=== PATIENT | female | born 1965 | race Caucasian/White ===

== ENCOUNTER 2018-06-22 12:02 | Emergency (ER) | payer BC, OTHER ==
--- NOTE | 2018-06-22 14:13 | RAD ---
INDICATION: Right knee pain. TECHNIQUE: 4 views of the right knee were obtained. FINDINGS: The bones are in normal alignment. No joint effusion or fracture is seen. Joint spaces appear maintained. IMPRESSION: NO EVIDENCE FOR FRACTURE.
--- NOTE | 2018-06-22 14:33 | UC ---
Knee Pain HPI - HPI Summary HPI Summary: patient at work got up from chair , felt pop in the right knee , since that time has had swelling , and pain . since that time used ice - History of Current Complaint Chief Complaint: UCLowerExtremity Stated Complaint: WC - RIGHT KNEE Time Seen by Provider: 06/22/18 13:41 Hx Obtained From: Patient ?: No Onset/Duration: Sudden Onset Severity Initially: Moderate Pain Intensity: 6 Character: Sharp Aggravating Factor(s): Movement Alleviating Factor(s): Rest Associated Signs And Symptoms: Positive: Negative Able to Bear Weight: Yes - Allergies/Home Medications Allergies/Adverse Reactions: Allergies Allergy/AdvReac Type Severity Reaction Status Date / Time silver sulfadiazine Allergy Blisters, Verified 06/22/18 12:35 [From Silvadene] Swollen Lips tramadol [From Ultram] Allergy Blisters, Verified 06/22/18 12:35 Swollen Lips Home Medications: Home Medications Acetaminophen [Acetaminophen Extra Strength] 1,000 mg PO Q6H PRN 06/22/18 [ History Confirmed 06/22/18] DULoxetine DR CAP* [Cymbalta CAP*] 30 mg PO DAILY 06/22/18 [History Confirmed ] PMH/Surg Hx/FS Hx/Imm Hx - Additional Past Medical History Additional PMH: gastric bypass surgery, hx. of fibromyalgia Previously Healthy: No - Surgical History Surgical History: Yes Surgery Procedure, Year, and Place: Gastric Bypass, 2014, [facility]; Lap Band, 2012, [facility]; C6C7 [facility]; Cholecystectomy, [place]; Bilateral Tarsal Tunnel and Plantar Fasciitis; Hystectomy, 1997, [place]; C-Sections, 1985 1982, [place]; Appendectomy, 1976, [place] - Social History Occupation: Employed Full-time Alcohol Use: None Substance Use Type: None Smoking Status (MU): Never Smoked Tobacco Review of Systems Constitutional: Negative Skin: Negative Eyes: Negative ENT: Negative Respiratory: Negative Cardiovascular: Negative Gastrointestinal: Negative Genitourinary: Negative Motor: Weakness Neurovascular: Negative Musculoskeletal: Myalgia Neurological: Negative Is Patient Immunocompromised?: No All Other Systems Reviewed And Are Negative: Yes Physical Exam Triage Information Reviewed: Yes Appearance: Well-Appearing, Pain Distress Vital Signs: Initial Vital Signs Temp 36.5 C 06/22/18 12:31 Pulse 60 06/22/18 12:31 Resp 16 09/12/18 12:31 BP 130/73 06/22/18 12:31 Pulse Ox 100 06/22/18 12:31 Vital Signs Reviewed: Yes Eye Exam: Normal Eyes: Positive: Conjunctiva Clear Neck exam: Normal Neck: Positive: Supple Respiratory Exam: Normal Respiratory: Positive: Lungs clear Abdomen Description: Positive: Nontender Bowel Sounds: Positive: Present Musculoskeletal Exam: Other Musculoskeletal: Positive: Other: - right knee, negative stanley, full rom, no evidence of effusion, negative pain with varus or valgus deformity, pain over the medial side of the joint line Skin Exam: Normal Knee Pain Course/Dx - Differential Dx/Diagnosis Provider Diagnoses: knee pain, possible medial meniscal injury Discharge - Sign-Out/Discharge Documenting (check all that apply): Patient Departure All imaging exams completed and their final reports reviewed: Yes - Discharge Plan Condition: Good Disposition: HOME Meds/Orders/Equipment: Manual Entry Orders Location: None Selected Patient Education Materials: Meniscus Tear (ED) Referrals: Abida Solis [Primary Care Provider] - - Billing Disposition and Condition Condition: GOOD Disposition: Home
[2018-06-22 14:41] VITALS: BP 145/74
== END 2018-06-22 14:55 | disposition home or self-care (01) ==
LOC: UCCORT 12:02
DX: M25.561 Pain in right knee (principal); X50.0XXA Overexertion from strenuous movement or load, initial encounter; Y93.89 Activity, other specified; Y92.89 Other specified places as the place of occurrence of the external cause; Y99.0 Civilian activity done for income or pay; Z88.8 Allergy status to other drugs, medicaments and biological substances
CPT/HCPCS: 99203; G0463

== ENCOUNTER 2018-10-13 14:54 | Emergency (ER) | payer BC, OTHER ==
--- OUTSIDE RECORDS SUMMARY | 2018-10-13 15:06 | XMS REPORT | Continuity of Care Document ---
:1965 Author Organization [facility] Address [address], [place] [id number] Phone Care Team Providers Name Role Phone Berenice Dunham PA-C Unavailable Unavailable Allergies, Adverse Reactions, Alerts Substance Reaction Status MILNACIPRAN HCL diffuse rash and headache (moderate) Active TRAZODONE HCL Active TRAMADOL HCL Active Medications Medication Instructions Dosage Effective Dates Status Comments (start - stop) duloxetine 30 mg take 2 capsule by 60 MG - Active capsule,delayed oral route every release day Tylenol Extra take 2 tablet 1000 MG - Active Strength 500 mg (1000MG) by oral Tab route every 6 hours as needed duloxetine 30 mg take 1 capsule by 30 MG - No Longer capsule,delayed oral route every Active release day Calcium 500 + D take 1 tab three - No Longer 500 mg (1,250 times daily Active mg)-200 unit tablet Problems Condition Effective Dates (start - Clinical Status Comments stop) Fibromyalgia Primary generalized (osteo)arthritis Fibromyalgia Primary generalized (osteo)arthritis Fibromyalgia Primary generalized (osteo)arthritis Cervical disc disorder, unspecified, cervicothoracic region Fibromyalgia Primary generalized (osteo)arthritis Fibromyalgia Primary generalized (osteo)arthritis Fibromyalgia Primary generalized (osteo)arthritis Fibromyalgia Primary generalized (osteo)arthritis Fibromyalgia Primary generalized (osteo)arthritis Fibromyalgia Primary generalized (osteo)arthritis Procedures Procedure Date ROUTINE VENIPUNCTURE COMPLETE CBC W/AUTO DIFF WBC ASSAY OF CREATININE ASSAY OF UREA NITROGEN TRANSFERASE (AST) (SGOT) ASSAY OF SERUM ALBUMIN OFFICE/OUTPATIENT VISIT, EST Results Test Name Date and Time Measure Units Reference Range Abnormal Flag Status Comments Panel Description: CBC Final WBC 11:21:00 5.6 10 3.7-10.1 Final RBC 11:21:00 4.92 10 3.50-5.50 Final HGB 11:21:00 14.5 g/dL 12.0-16.0 Final HCT 11:21:00 44.7 % 36.0-48.0 Final MCV 11:21:00 90.9 fL 80.0-100.0 Final MCH 11:21:00 29.5 pg 26.0-34.0 Final MCHC 11:21:00 32.5 g/dL 31.0-37.0 Final RDW 11:21:00 12.1 % 10.0-15.0 Final PLATELETS 11:21:00 187 10 150-500 Final MPV 11:21:00 7.6 fL 6.0-10.0 Final JOSEFINA# 11:21:00 3.15 10 2.10-8.00 Final LYM# 11:21:00 1.91 10 1.00-5.00 Final MONO# 11:21:00 0.48 10 0.10-1.00 Final EOS# 11:21:00 0.1 10 0.0-0.5 Final BASO# 11:21:00 0.0 10 0.0-0.2 Final JOSEFINA% 11:21:00 55.9 % 50.0-80.0 Final LYM% 11:21:00 33.8 % 25.0-50.0 Final MONO% 11:21:00 8.4 % 2.0-10.0 Final EOS% 11:21:00 1.0 % 0.0-5.0 Final BASO% 11:21:00 0.9 % 0.0-4.0 Final Panel Description: ALBUMIN Final ALB 11:21:00 4.0 g/dL 3.4-4.4 Final Panel Description: AST Final AST 11:21:00 21 U/L 15-37 Final Panel Description: BUN Final BUN 11:21:00 16 mg/dL 10-23 Final Panel Description: CREATININE Final CREATININE 11:21:00 0.9 mg/dL 0.6-1.2 Final eGFR 11:21:00 65.0 mL/min/1.73m Final Advance Directives Directive Yes / No Effective Date File Name No information Encounters Encounter Practice Location Reason(s) For Diagnoses Date Provider Providers Description Visit Copied on Encounter OFFICE/OUTPA Arthritis Arthritis Fibromyalgia Fibromyalgia Dec-0 McIlvain Referring TIENT VISIT, [facility] Health syndrome Primary 6- CINDI Ng. Provider: MALKA Gorman (chief generalized [phone], [facility] complaint) (osteo)arthr [facility], , [address] [place] [address], [place], [place], [place], [place], [id number], [place], [id number], [place], [address]. [place] tel:[phone] tel:[phone] tel:[phone] Arthritis Arthritis Dec-0 McIain [facility] 3-201 CINDI Ng. Sherif Gorman 8 [facility], 5794 PLLC [facility], [facility], [place], [id number], [id number], [place]. [place] tel:[phone] tel:[phone] Arthritis Arthritis Fibromyalgia Brandon-0 [place] Referring Health Health Primary 7- CINDI Ng. Provider: Sherif Gorman generalized 8 [phone], [facility] (osteo)arthr [facility], s, [address] [place] [address], [place], [place], [place], [place], [place], [id number], [place], [id number], [place], [address]. [place] tel:+[phone] tel:+60 tel:[phone] Arthritis Arthritis Fibromyalgia Dec-0 [facility] Referring Health Health Primary 7-201 MD Hardy. Provider: Sherif Gorman generalized 7 [phone], [facility]oste[facility] [place], s, [address], disc [place], [place], [place], [place], [place], [place], [place], [id number], [place], [id number], [place], [address]. [place] [facility] region tel:[phone] tel:[phone] tel:[phone] Arthritis Arthritis Fibromyalgia Brandon-0 Mc[place]ain Referring Health Health Primary 8-201 PA-C Berenice. Provider: Sherif Gorman generalized 7 [phone], [facility] (osteo)arthr [facility], s, [address], [place], [place], [place], [place], [place], [id number], [place], [id number], [place], [address]. [place] tel:[phone] tel:+60 tel:[phone] Arthritis Arthritis Fibromyalgia Dec-0 [place] Referring Health Health Primary 1-201 PA-Anjum Ng. Provider: Sherif Gorman generalized 6 [facility], [facility] (osteo)arthr [facility], s, [address], [place], [place], [place], [place], [place], [id number], [place], [id number], [place], [address]. [place] tel:+[phone] tel:+[phone] tel:[phone] Arthritis Arthritis Fibromyalgia Josafat-2 [place] Referring Health Health Primary 0-201 PA-C Berenice. Provider: Sherif Gorman generalized 6 [facility], 5[facility] (osteo)arthr [facility], s, [facility], [facility], [place], [place], [place], [id number], [place], [id number], [place], [address]. [place] tel:[phone] tel:+60 tel:[phone] Arthritis Arthritis Fibromyalgia May-1 [place] Referring Health Health Primary 2-201 PA-C Berenice. Provider: Sherif Gorman generalized 6 [facility], 5[facility] (osteo)arthr [facility], , [address] [place], [place], [facility], [place], [place], [place], [id number], [place], [id number], [place], [address]. [place] tel:+[phone] tel:+60 tel:[phone] Arthritis Arthritis Fibromyalgia Feb- [place] Referring Health Health Primary 1-201 PA-C Berenice. Provider: Sherif Gorman generalized 6 [facility], 5[facility] PLLC (osteo)arthr [facility], , [facility], [place], [place], [place], [place], [id number], [place], [id number], [place], [address]. [place] tel:+[phone] tel:+60 tel:[phone] Arthritis Arthritis Fibromyalgia Dec-3 [place] Referring Health Health Primary 0-201 PA-C Berenice. Provider: Sherif Gorman generalized 5 [phone], 5[facility] PLL[facility] (osteo)arthr [facility], , [address] [place] [address], [place], [facility], [place], [place], [place], [id number], [place], [id number], [place], [address]. [place] tel:+[phone] tel:+60 tel:[phone] Arthritis Arthritis Apr-1 [place] Referring Health Health 9-201 PA-C Berenice. Provider: [facility], 5794 PLLC [facility], s, [address] [place], [place], [place], [place], [place], [place], [id number], [place], [id number], . [place], [address]. [place] tel:[phone] tel:+[phone] tel:[phone] Arthritis Arthritis Jan- [facility] 7-201 CINDI Ng. Provider: [facility] 1 [facility], 5[facility], s, [address] [place], [place], [facility], [place], [place], [place], [id number], [place], [id number], . [place], [address]. [place] tel:+[phone] tel:+607 tel:[phone] Family History Family Member Diagnosis Age At Onset No information Immunizations Vaccine Date Status Comments Influenza, injectable, MDCK, administered Source: Other Provider Flucelvax Quad 2017-2019Y Not receiving Zoster administered Source: New Immunization Record Never had a PPV23 administered Source: New Immunization Record Payers Payer name Insurance type Covered alliance party ID Authorization(s) BCBS No Referral Required [id number] Social History Type Description Quantity Date Captured Comments Alcohol Use Details No Caffeine Use Details No Tobacco Use Status Never smoked tobacco Smoking Status Never smoker Non-Smoking Tobacco : No Details Available : No Details Available 2017 Use Details Sex Female Vital Signs Date / Height Weight BMI Pulse Blood Temperature Respiratory Body Head BMI Pulse Inhaled Time: Rate Pressure Rate Surface Circumference percentile Ox Ox Area 60.00 175.00 34.1 in lbs 8 mm[Hg] 11:05 kg/m AM eter (2) Chief Complaint And Reason For Visit Most recent encounter only, dated '09/15/2018 11:00'. Fibromyalgia syndrome (chief complaint). Description: The pain severity is 7/10. Patient is experiencing generalized morning stiffness for 1 1/2 hours. Patient denies having abdominal pain, loss of appetite, weight loss and insomnia.Patient is currently taking cymbalta with no side effects Reason For Referral Reason For Referral No information Plan Of Treatment Date Type Action Status Appointment Gisela Thao BOOKED History Of Present Illness Encounter Date Complaint History Of Present Illness Fibromyalgia syndrome The pain severity is 7/10. Patient is experiencing generalized morning stiffness for 1 1/2 hours. Patient denies having abdominal pain, loss of appetite, weight loss and insomnia.Patient is currently taking cymbalta with no side effects Functional Status Date Functional Assessment No information Medications Administered Medication Instructions Dosage Effective Dates (start - stop) Status Comments No information Instructions Date Instruction Additional Information No information
--- OUTSIDE RECORDS SUMMARY | 2018-10-13 15:06 | XMS REPORT | Continuity of Care Document ---
:1965 Author Organization [facility] Address [address], [place] [phone] Phone Care Team Providers Name Role Phone [...] capsule,delayed oral route every Active release day duloxetine 30 mg take 1 capsule by [...] Fibromyalgia Primary generalized (osteo)arthritis Procedures Procedure Date No information Results Test Name Date and Time Measure Units Reference Range Abnormal Flag Status Comments No information Advance Directives Directive Yes / No Effective Date File Name No information Encounters Encounter Practice Location Reason(s) Diagnoses Date Provider Providers Description For Visit Copied on Encounter Arthritis Arthritis FibromyalgiaPri Dec-0 McIain [facility] [place] 6- CINDI Ng. Provider: Sherif Gorman generalized 8 [phone], [facility], s, [address] [place], [place], [place], [place], [place], [place], [id number], [place], [id number], [place], [address]. [place] tel:+[phone] tel:+60 tel:[phone] Arthritis Arthritis Dec-0 [facility] 3- CINDI Ng. Sherif Gorman 8 5794 PLLC, [address] [facility], [place], [place], [place], [id number], [id number], [place]. [place] tel:[phone] tel:[phone] Arthritis Arthritis FibromyalgiaPri Brandon-0 McIlvain [facility] [place] 7- CINDI Ng. Provider: Sherif Gorman generalized 8 [facility], 5[facility], s, [address], [place], [place], [place], [place], [place], [id number], [place], [id number], [place], [address]. [place] tel:+[phone] tel:+60 tel:[phone] Arthritis Arthritis FibromyalgiaPri Dec-0 [place] Referring [facility] 7-201 MD Hardy. Provider: Sherif Gorman generalized 7 [facility], 5[facility] [place], s, [address] [place], disorder, [place], [place], [place], [place], [place], [place], cervicothoracic [id number], [place], [id number], [place], [address]. [place] tel:+[phone] tel:+[phone] tel:[phone] Arthritis Arthritis FibromyalgiaPri Brandon-0 [place] Referring [facility] 8 CINDI Ng. Provider: Sherif Gorman generalized 7 [facility], 5[facility], , [address] [place] [address], [place], [place], [place], [place], [id number], [place], [id number], [place], [address]. [place] tel:+[phone] tel:+607 tel:[phone] Arthritis Arthritis FibromyalgiaPri Dec-0 [place] Referring [facility] CINDI Ng. Provider: Sherif Gorman generalized 6 [facility], 5[facility], , [address] [place] [address], [place], [place], [place], [place], [id number], [place], [id number], . [place], [address]. [place] tel:+[phone] tel:+607 tel:[phone] Arthritis Arthritis FibromyalgiaPri Apr-2 [place] Referring [facility] 0 CINDI Ng. Provider: Sherif Gorman generalized 6 [facility], 5[facility], , [address] [place] [address], [place], [place], [place], [place], [id number], [place], [id number], . [place], [address]. [place] tel:+[phone] tel:+607 tel:[phone] Arthritis Arthritis FibromyalgiaPri February- [place] Referring [facility] 2201 CINDI Ng. Provider: Sherif Gorman generalized 6 [facility], 5[facility], [address] [place] [address], [place], [place], [place], [place], [id number], [place], [id number], [place], [address]. [place] tel:+[phone] tel:+60 tel:[phone] Arthritis Arthritis FibromyalgiaPri Feb-1 [place] Referring [facility] 1-201 PA-C Berenice. Provider: Sherif Gorman generalized 6 [facility], 5794 PLLC (osteo)[facility], , [address] [place] [address], [place], [place], [place], [place], [id number], [place], [id number], [place], [address]. [place] tel:+[phone] tel:+60 tel:[phone] Arthritis Arthritis FibromyalgiaPri Dec-3 [place] Referring [facility] 0-201 PA-Anjum Ng. Provider: Sherif Gorman generalized 5 [facility], 5[facility]C (osteo)[facility], , [address] [place] [address], [place], [place], [place], [place], [id number], [place], [id number], [place], [address]. [place] tel:+[phone] tel:+60 tel:[phone] Arthritis Arthritis Apr-1 [place] Referring [facility] 9-201 PA-Anjum Ng. Provider: Sherif Gorman 3 [facility], 5794 PLLC [facility], , [address] [place] [address], [facility], [place], [place], [place], [id number], [place], [id number], [place], [address]. [place] tel:+[phone] tel:+60 tel:[phone] Arthritis Arthritis Apr-0 [place] Referring [facility] 7-201 PA-C Berenice. Provider: Sherif Gorman 1 [facility], 5794 [facility], , [address] [facility], [place], [place], [place], [place], [id number], [place], [id number], . [place], [address]. tel:-[phone] tel:+[phone] tel:[phone] Family History Family Member Diagnosis Age At Onset No information Immunizations Vaccine Date Status Comments Influenza, injectable, MDCK, administered Source: Other Provider Flucelvax Quad Y Not receiving Zoster administered Source: New Immunization Record Never had a PPV23 administered Source: New Immunization Record Payers Payer name Insurance type Covered green party ID Authorization(s) BCBS No Referral Required [id number] Social History Type Description Quantity Date Captured Comments Sex Female Vital Signs Date / Height Weight BMI Pulse Blood Temperature Respiratory Body Head BMI Pulse Inhaled Time: Rate Pressure Rate Surface Circumference percentile Ox Ox Area No information Chief Complaint And Reason For Visit No information Reason For Referral Reason For Referral No information Plan Of Treatment Date Type Action Status Appointment Gisela Thao BOOKED History Of Present Illness Encounter Date Complaint History Of Present Illness No information Functional Status Date Functional Assessment No information Medications Administered Medication Instructions Dosage Effective Dates (start - stop) Status Comments No information Instructions Date Instruction Additional Information No information
[2018-10-13 15:59] VITALS: BP 135/70
--- NOTE | 2018-10-13 16:56 | ED ---
Throat Pain/Nasal Congestion - HPI Summary HPI Summary: 53 yr old female with the complaint of runny nose, sinus congestion, pressure post nasal drip. Onset about a week ago. She is complaining of pain in the maxillary sinuses mostly. Pain is moderate. No SOB. - History of Current Complaint Chief Complaint: UCGeneralIllness Time Seen by Provider: 10/13/18 16:19 - Allergies/Home Medications Allergies/Adverse Reactions: Allergies Allergy/AdvReac Type Severity Reaction Status Date / Time silver sulfadiazine Allergy Blisters, Verified 10/13/18 15:50 [From Silvadene] Swollen Lips tramadol [From Ultram] Allergy Blisters, Verified 10/13/18 15:50 Swollen Lips Home Medications: Home Medications Albuterol HFA INHALER* [Ventolin HFA Inhaler*] 2 puff INH Q4H PRN 10/13/18 [ History Confirmed 10/13/18] Dm/PE/Acetaminophen/Doxylamine [Daytime-Nighttime Cold-Flu] 1 each PO BID [History Confirmed 10/13/18] PMH/Surg Hx/FS Hx/Imm Hx - Surgical History Surgery Procedure, Year, and Place: Gastric Bypass, 2014, [facility]; Lap Band, 2012, [facility]; C6C7 2012, [facility]; Cholecystectomy, 2002, [place]; Bilateral Tarsal Tunnel and Plantar Fasciitis; Hystectomy, 1997, [place]; C-Sections, 1985 1982, [place]; Appendectomy, 1976, [place] Infectious Disease History: No Infectious Disease History: Denies: Traveled Outside the in Last 30 Days - Family History Known Family History: Positive: None - Social History Occupation: Employed Full-time Alcohol Use: Rare Substance Use Type: Reports: None Smoking Status (MU): Never Smoked Tobacco Review of Systems Constitutional: Negative Positive: Nasal Discharge, Other - sinus pressure Positive: Cough All Other Systems Reviewed And Are Negative: Yes Physical Exam Triage Information Reviewed: Yes Vital Signs On Initial Exam: Initial Vitals Temp Pulse Resp BP Pulse Ox 97.9 F 62 16 135/70 99 10/13/18 15:53 10/13/18 15:53 10/13/18 15:53 10/13/18 15:53 10/13/18 15:53 Vital Signs Reviewed: Yes Appearance: Positive: Well-Appearing, No Pain Distress Skin: Positive: Warm, Skin Color Reflects Adequate Perfusion Head/Face: Positive: Normal Head/Face Inspection Eyes: Positive: EOMI ENT: Positive: Pharynx normal, Nasal congestion, TMs normal, Sinus tenderness Neck: Positive: Nontender Respiratory/Lung Sounds: Positive: Clear to Auscultation, Breath Sounds Present Cardiovascular: Positive: RRR. Negative: Murmur Abdomen Description: Negative: Distended Musculoskeletal: Positive: Strength/ROM Intact Neurological: Positive: Sensory/Motor Intact, Alert, Oriented to Person Place, Time, CN Intact II-III Psychiatric: Positive: Normal Diagnostics - Vital Signs Vital Signs Temp Pulse Resp BP Pulse Ox 10/13/18 15:53 97.9 F 62 16 135/70 99 - Laboratory Lab Statement: Any lab studies that have been ordered have been reviewed, and results considered in the medical decision making process. EENT Course/Dx - Course Course Of Treatment: 53 yr old with sinusitis. Rx with Cefdinir. - Diagnoses Provider Diagnoses: Sinusitis Discharge - Sign-Out/Discharge Documenting (check all that apply): Patient Departure All imaging exams completed and their final reports reviewed: No Studies - Discharge Plan Condition: Good Disposition: HOME Prescriptions: Cefdinir [Cefdinir 300 MG CAP] 300 mg PO BID #20 capsule Patient Education Materials: Sinusitis (ED) Referrals: Abida Solis [Primary Care Provider] - 2 Days - Billing Disposition and Condition Condition: GOOD Disposition: Home
== END 2018-10-13 17:04 | disposition home or self-care (01) ==
LOC: UCCORT 14:54
DX: J32.9 Chronic sinusitis, unspecified (principal); Z88.1 Allergy status to other antibiotic agents; Z88.6 Allergy status to analgesic agent
CPT/HCPCS: 99212; G0463

== ENCOUNTER 2020-01-02 15:11 | Emergency (ER) | payer BC ==
--- OUTSIDE RECORDS SUMMARY | 2020-01-02 15:22 | XMS REPORT | Continuity of Care Document ---
:1965 Author Organization [facility] Address [address], [place] [id number] Phone Support Name Relationship Address Phone Elo SHUKRIAbida Unavailable Unavailable Unavailable Allergies, Adverse Reactions, Alerts Substance Reaction Status MILNACIPRAN HCL diffuse rash and headache (moderate) Active TRAZODONE HCL Active TRAMADOL HCL Active Medications Medication Instructions Dosage Effective Dates Status Comments (start - stop) duloxetine 30 mg take 2 capsule by 60 MG - Active capsule,delayed release oral route every day sucralfate 1 gram tablet take 1 tablet by 1 G - Active oral route 4 times every day on an empty stomach 1 hour before meals and at bedtime cholecalciferol (vitamin take 1 by Oral route 1 - Active D3) 5,000 unit tablet every day Tylenol Extra Strength take 2 tablet 1000 MG - Active 500 mg Tab (1000MG) by oral route every 6 hours as needed Problems Condition Effective Dates (start - Clinical Status Comments stop) Dorsalgia, unspecified - Fibromyalgia Primary generalized (osteo)arthritis Cervical disc disorder, unspecified, cervicothoracic region Pain in joint Back pain Fibromyalgia Polyarthritis Fibromyalgia Primary generalized (osteo)arthritis Fibromyalgia Primary generalized [...] Description For Visit Copied on Encounter [facility], [address] [facility], [place], [place], [id number], [place] tel:[phone] Ar[facility]ritis Arthritis Dorsalgia, Dec-0 [place] Referring [facility] unspecifiedFibr CINDI Ng. Provider: Sherif Gorman omyalgiaPrimary 0 [facility], [facility] generalized [facility] (osteo)arthriti [place], s, [address] [place], sCervical disc [place], [place], disorder, [place], [place], [place], unspecified, [id number], [place], [id number], [place], [address]. [place] tel:[phone] tel:+607 tel:[phone] Ar[facility]ritis Arthritis Pain in [facility] Referring [facility] jointBack MD Grewal. Provider: Sherif Gorman painFibromyalgi 0 [facility], [facility] aPolyarthritis [facility], s, [address] [place], [place], [place], [place], [place], [place], [id number], [place], [id number], [place], [address]. [place] tel:+[phone] tel:+607 tel:[phone] [facility] Ar[facility]ritis FibromyalgiaPri Mar- [place] Referring [facility] surinder CINDI Ng. Provider: Sherif tinoco 9 [facility], [facility] (osteo)arthriti [facility] s [place], [place], [address] [place], [place], [place], [place], [place], [place], [id number], [place], [id number], [place], [address]. [place] tel:+[phone] tel:+607 tel:[phone] Arthritis Arthritis FibromyalgiaPri Sep- [place] Referring [facility] CINDI Ng. Provider: [facility] generalized 8 [facility], [facility] [place], [place], [address] [place], [place], [place], [place], [place], [place], [id number], [place], [id number], [place], [address]. [place] tel:[phone] tel:+607 tel:[phone] Arthritis Arthritis FibromyalgiaPri Brandon-0 [place] Referring [facility] CINDI Ng. Provider: Sherif Gorman generalized 8 [facility] [facility], [facility] [facility] s [place], [place], [address] [place], [place], [place], [place], [place], [place], [id number], [place], [id number], [place], [address]. [place] tel:[phone] tel:+607 tel:[phone] Arthritis Arthritis FibromyalgiaPri Dec-0 [facility] Referring [facility] MD Hardy. Provider: Sherif Gorman generalized 7 [facility], [facility] (osteo)arthriti [facility] sCervical disc [place], s, [address] [place], disorder, [place], [place], [place], [place], [place], cervicothoracic [id number], [place], [id number], [place], [address]. [place] tel:[phone] tel:+[phone] tel:[phone] Arthritis Arthritis FibromyalgiaPri Brandon-0 [place] Referring [facility] CINDI Ng. Provider: Sherif Gorman generalized 7 [address] [facility], [facility] (osteo)arthriti [facility] s [place], s, [address] [place], [place], [place], [place], [place], [place], [id number], [place], [id number], [place], [address]. [place] tel:[phone] tel:+[phone] tel:[phone] Arthritis Arthritis FibromyalgiaPri Sep- [place] Referring [facility] CINDI Ng. Provider: Sherif Gorman generalized 6 [facility] [facility], [facility] [facility] (osteo)arthriti [facility], , [address] [place] [address], [place], [place], [place], [id number], [place], [id number], [place], [address]. [place] tel:+[phone] tel:+60 tel:[phone] Arthritis Arthritis FibromyalgiaPri [place] Referring [facility] CINDI Ng. Provider: Sherif Gorman generalized 6 [facility], [facility] [facility], , [address] [place] [address], [place], [place], [place], [id number], [place], [id number], . [place], [address]. [place] tel:+[phone] tel:+607 tel:[phone] Arthritis Arthritis FibromyalgiaPri [place] Referring [facility] CINDI Ng. Provider: Sherif Gorman generalized 6 [facility] [facility], [address] [facility], , [address] [place] [address], [place], [place], [place], [id number], [place], [id number], . [place], [address]. [place] tel:+[phone] tel:+60 tel:[phone] Arthritis Arthritis FibromyalgiaPri Nov- [place] Referring [facility] CINDI Ng. Provider: Sherif Gorman generalized 6 [address] [facility], [address] [facility], , [address] [place] [address], [place], [place], [place], [id number], [place], [id number], [place], [address]. [place] tel:+[phone] tel:+60 tel:[phone] Arthritis Arthritis FibromyalgiaPri Dec-3 [place] Referring [facility] 0-201 SHAILESHBrandeeAnjum Berenice. Provider: Sherif Gorman [facility], [facility] [facility] (osteo)arthriti [facility], [address] [place] [address], [place], [place], [place], [id number], [place], [id number], [place], [address]. [place] tel:+[phone] tel:+60 tel:[phone] Arthritis Arthritis Apr-1 [place] Referring [facility] 9-201 CINDI Ng. Provider: Sherif Gorman 3 [facility], 5[address] [facility], [address] [place] [address], [place], [place], [place], [id number], [place], [id number], [place], [address]. [place] tel:+[phone] tel:+60 tel:[phone] Arthritis Arthritis Apr-0 [place] Referring [facility] 7-201 CINDI Ng. Provider: Sherif Gorman 1 [facility], [address] [facility], [address] [place] [address], [place], [place], [place], [id number], [place], [id number], . [place], [address]. [place] tel:+[phone] tel:+607 tel:[phone] Family History Family Member Diagnosis Age At Onset No information Immunizations Vaccine Date Status Comments Influenza, injectable, MDCK, administered Source: Other Provider Flucelvax Quad 2017-2018Y Not receiving Zoster administered Source: New Immunization Record Never had a PPV23 administered Source: New Immunization Record Payers Payer name Insurance type Covered alliance party ID Authorization(s) BCBS No Referral Required [id number] Social History Type Description Quantity Date Captured Comments Sex Female Vital Signs Date / Height Weight BMI Pulse Blood Temperature Respiratory Body Head BMI Pulse Inhaled Time: Rate Pressure Rate Surface Circumference percentile [place] Area No information Chief Complaint And Reason For Visit No information Reason For Referral Reason For Referral No information Plan Of Treatment Date Type Action Status Referral Ordered: ordered *XRAY ENTIRE SPINE AP/LAT Appointment Gisela Thao BOOKED History Of Present Illness Encounter Date Complaint History Of Present Illness No information Functional Status Date Functional Assessment No information Medications Administered Medication Instructions Dosage Effective Dates (start - stop) Status Comments No information Instructions Date Instruction Additional Information No information
--- OUTSIDE RECORDS SUMMARY | 2020-01-02 15:22 | XMS REPORT | Summary of Care ---
:1965 Author Organization [facility] Address [address] [place] [address] Care Team Providers Name Role Phone Abida Gasca LEASE PURCHASE DRIVER Primary Care Provider Reason for Referral Routine Exam (Routine) Status Reason Specialty Diagnoses / Referred By Referred To Procedures Contact Contact Authorized Diagnoses Fecal smearing Incontinence of feces with fecal urgency Iris Altamirano, Procedures Manometry Anal PA [address] [place] [phone] Email: [email or web address] Routine Exam (Routine) Status Reason Specialty Diagnoses / Referred By Referred To Procedures Contact Contact Authorized Diagnoses Diarrhea, unspecified type Excessive flatus Fecal smearing Incontinence of feces with fecal urgency Iris Altamirano, Procedures Diagnostic colonoscopy PA [address] [phone] Email: [email or web address] Reason for Visit Reason Comments New Patient fecal incontinence/constipation Encounter Details Date Type Department Care Team Description 11/17/2019 Office Visit [place] Iris Altamirano, Diarrhea, unspecified type (Primary Dx); Gastroenterology PA Excessive flatus; [address] Fecal smearing; [address] Incontinence of feces [place] [id number] [phone] Allergies Active Allergy Reactions Severity Noted Date Comments Oxycodone-Acetaminophen Itching, Swelling, Rash Medium 11/07/2013 Silver Sulfadiazine 10/09/2013 Reaction: HIVES Sulfa Antibiotics Hives 07/19/2013 Tramadol Hives 07/19/2013 documented as of this encounter (statuses as of 11/20/2019) Medications Medication Sig Dispensed Refills Start Date End Date Status duloxetine (CYMBALTA) Take 60 mg by 0 Active 60 MG capsule mouth daily. VITAMIN D, Take 5,000 0 Active CHOLECALCIFEROL, PO Units by mouth Sucralfate 1 GM Oral TAKE 1 TABLET 360 tablet 3 10/05/2019 Active Tablet (CARAFATE) BY MOUTH FOUR TIMES DAILY. CRUSH TABLET IN A SMALL AMOUNT OF WATER AND DRINK Pantoprazole Sodium 40 TAKE 1 TABLET 90 tablet 3 10/05/2019 Active MG Oral Tablet Delayed BY MOUTH EVERY Release (PROTONIX) DAY. PEG Take 4,000 mLs 4000 mL 1 11/17/2019 11/17/2019 4669-[id number]-BkIim-NaCl-Na by mouth once Sulf 240 GM Oral for 1 dose Solution Reconstituted (COLYTE)Indications: Incontinence of feces with fecal urgency documented as of this encounter (statuses as of 11/20/2019) Active Problems Problem Noted Date Marginal ulcer 10/06/2019 Status post bariatric surgery 01/09/2016 Herniated nucleus pulposus, C6-7 07/19/2013 Cervical spondylosis with radiculopathy 07/19/2013 Cervical spondylosis with myelopathy 07/19/2013 documented as of this encounter (statuses as of 11/20/2019) Resolved Problems Problem Noted Date Resolved Date Malnutrition 02/08/2015 01/09/2016 Malnutrition 12/21/2014 01/09/2016 Type II or unspecified type diabetes mellitus without 08/07/2014 12/21/2014 mention of complication, not stated as uncontrolled Morbid obesity 07/10/2014 01/09/2016 Herniated nucleus pulposus, C5-6 07/19/2013 01/09/2016 Diabetes mellitus 01/09/2016 documented as of this encounter (statuses as of 11/20/2019) Social History Tobacco Use Types Packs/Day Years Used Date Never Smoker Smokeless Tobacco: Never Used Tobacco Cessation: Counseling Given: No Alcohol Use Drinks/Week oz/Week Comments No Sex Assigned at Date Recorded Not on file Job Start Date Occupation Industry Not on file Not on file Not on file Travel History Travel Start Travel End No recent travel history available. documented as of this encounter Last Filed Vital Signs Vital Sign Reading Time Taken Comments Blood Pressure 154/83 11/17/2019 8:56 AM EST Pulse 69 11/17/2019 8:56 AM EST Temperature 36.6 11/17/2019 8:56 AM EST C (97.9 F) Respiratory Rate 18 11/17/2019 8:56 AM EST Oxygen Saturation 97% 11/17/2019 8:56 AM EST Inhaled Oxygen Concentration - - Weight 83.2 kg (183 lb 6.4 oz) 11/17/2019 8:56 AM EST Height 149.9 cm (4' 11") 11/17/2019 8:56 AM EST Body Mass Index 37.04 11/17/2019 8:56 AM EST documented in this encounter Progress Notes Iris Altamirano PA - 11/17/2019 9:00 AM EST GI CLINIC NOTE Reason for GI Clinic Visit: fecal smearing Referring physician: Abida Gasca NP HISTORY CC:fecal smearing, malodorous flatus, diarrhea History of Presenting Illness Ms. Gisela Thao is a 54 y.o. female patient with a past medical history including diarrhea, fecal incontinence with fecal smearing, and malodorous flatus. She is s/p Katherine-en-Y bypass in November2014. Since August 2019 she has been having issues with changes in bowel habits. Previously, she was chronically constipated, only moving her bowels every several days or so. At this point, she is having diarrhea 1-5 times daily. She is reporting fecal urgency and occasional full incontinence of stool. This is happening a few times weekly. She is also having occasional fecal smearing when she is not moving her bowels. She reports the onset of excessive, malodorous flatus around this same time. No hematochezia, melena, or hematemesis. No constipation, nausea or vomiting reported. No dysphagia or unintentional weight loss reported. No urinary incontinence noted. Of note, she had an EGD 10/05/[address] Gurrola, indicating a shallow 3mm ulcer in her bypass. She is presently on PPI and Carafate for 3 months, at which time EGD will be repeated. She also had an upper GI study done in June 2019 which showed a hiatal hernia with reflux. Past Medical & Surgical History Past Medical History: Diagnosis Date Allergy Arthritis Blood transfusion Blood transfusion without reported diagnosis Diabetes mellitus "Not since weight loss" Esophageal tear Low back pain Neuromuscular disorder fibromyalgia Osteopenia Past Surgical History: Procedure Laterality Date APPENDECTOMY 1977 CARDIAC CATHETERIZATION "No significant finding" SECTION 1982, 1985 x2 CHOLECYSTECTOMY 1998 COLONOSCOPY 10/2010 FOOT SURGERY Bilateral GASTRIC BYPASS HYSTERECTOMY 1998 lapband 12/06/2008 Dr. Whelan OOPHORECTOMY 1998 DE EGD TRANSORAL BIOPSY SINGLE/MULTIPLE N/A 10/05/2019 Procedure: UPPER ENDOSCOPY; Surgeon: Patrick Gurrola MD; Location: [facility]; Service: Endoscopy; Laterality: N/A; DE LAP, REMOVE ADJUST JAMILA RESTRICT DEVICE/PORT N/A 11/14/2014 Procedure: Removal Lap Band , Lap Katherine-en-y Gastric Bypass Surgery; Surgeon: Shaq Whelan MD; Location: [facility]; Service: General; Laterality: N /A; Allergies Allergen Reactions Percocet [Oxycodone-Acetaminophen] Itching, Swelling and Rash Silver Sulfadiazine Reaction: HIVES Sulfa Antibiotics Hives Ultram [Tramadol] Hives Home Medications Medication Sig duloxetine (CYMBALTA) 60 MG capsule Take 60 mg by mouth daily. Pantoprazole Sodium 40 MG Oral Tablet Delayed Release (PROTONIX) TAKE 1 TABLET BY MOUTH EVERY DAY. Sucralfate 1 GM Oral Tablet (CARAFATE) TAKE 1 TABLET BY MOUTH FOUR TIMES DAILY. CRUSH TABLET IN A SMALL AMOUNT OF WATER AND DRINK VITAMIN D, CHOLECALCIFEROL, PO Take 5,000 Units by mouth PEG 2482-QRc-BaTsg-NaCl-NaSulf 240 GM Oral Solution Reconstituted (COLYTE) Take 4,000 mLs by mouth once for 1 dose Social History She is . She reports that she has never smoked. She has never used smokeless tobacco. She reports that she does not drink alcohol or use drugs. Family History family history includes Diabetes in her father; Heart disease in her mother; Hypertension in her mother. Review of systems: A complete review of systems was done, which was pertinent for what is listed above and in HPI or in supplemental chart. The remainder of the complete ROS is negative. The patient was asked to refer non- gastrointestinal and non-liver related complaints to the primary care provider. PHYSICAL EXAMINATION Blood pressure 154/83, pulse 69, temperature 36.6 C (97.9 F), temperature source Oral, resp.rate 18, height 1.499 m (4' 11"), weight 83.2 kg ( 183 lb 6.4 oz), SpO2 97 %, not currently . Constitutional: She is oriented to person, place, and time. Head: Normocephalic and atraumatic. Eyes: No pallor. No scleral icterus. Cardiovascular: Normal heart sounds. Regular rate.. Pulmonary/Chest: Effort normal and breath sounds normal. There are no wheezes. Abdominal: Bowel sounds are normal. She exhibits no distension and no mass. There is no tenderness. There is no rebound and no guarding. Musculoskeletal: No edema. No tenderness. Neurological: She is alert and oriented. Normal speech. Skin: Skin is warm. No rash Psychiatric: She has a normal mood and affect. Behavior is normal. DATA REVIEW All laboratory data, outside records and imaging that were available were independently reviewed by me. Pertinent data is listed here. Laboratory Data Lab Results Component Value Date HGB 12.8 11/15/2014 HGB 14.3 11/02/2014 HCT 36.4 11/15/2014 HCT 41.8 11/02/2014 WBC 9.9 11/15/2014 WBC 6.7 11/02/2014 PLT 153 11/15/2014 PLT 181 11/02/2014 ] Lab Results Component Value Date NEUTOPHILPCT 79.9 (H) 11/15/2014 LYMPHOPCT 11.4 (L) 11/15/2014 MONOPCT 8.4 (H) 11/15/2014 EOSPCT 0.1 11/15/2014 Lab Results Component Value Date NA 143 11/02/2014 K 4.3 11/02/2014 CL 105 11/02/2014 BICARBONATE 30 11/02/2014 GLUCOSE 77 11/02/2014 BUN 12 11/02/2014 CREATININE 0.9 11/02/2014 Lab Results Component Value Date PROT 7.1 11/02/2014 ALBUMIN 3.9 11/02/2014 AST 15 11/02/2014 ALT 32 11/02/2014 TBILI 0.6 11/02/2014 ALKPHOS 89 11/02/2014 No results found for: LIPASE, AMYLASE No results found for: INR, PROTIME, PTT Imaging and other investigations: Previous Endoscopies: See HPI Other relevant studies: See HPI ASSESSMENT AND PLAN Ms. Gisela Thao is a 54 y.o. year old female patient status post Katherine-en- y bypass with diarrhea, flatus, and fecal incontinence. I discussed the proposed work up with the patient. I would like to obtain labs and stool collectionsto assess for possible causes of her diarrhea. In addition , I would like to consider colonoscopy as her symptoms have changed since the time of her last colonoscopy. We can also obtain manometry for her incontinence issues. She would like to proceed as above. I discussed the risks (including perforation, bleeding and cardio-pulmonary events); benefits (cancer prevention and detection); and alternatives ( radiographic studies) to colonoscopy with the patient and she agreed to proceed. Will follow up after procedures to determine next steps. All questions answered to patient's satisfaction. Orders Placed This Encounter Community-Acquired Diarrhea Panel Standing Status: Future Standing Expiration Date: 05/17/2020 Basic metabolic panel Standing Status: Future Standing Expiration Date: 05/17/2020 Celiac reflex panel Standing Status: Future Standing Expiration Date: 05/17/2020 Hepatic function panel Standing Status: Future Standing Expiration Date: 05/17/2020 CBC and differential Standing Status: Future Standing Expiration Date: 05/17/2020 T4, free Standing Status: Future Standing Expiration Date: 05/17/2020 TSH Standing Status: Future Standing Expiration Date: 05/17/2020 Diagnostic colonoscopy Scheduling Instructions: At . Same day as anal manometry. Order Specific Question: Pre-op diagnosis: Answer: diarrhea, fecal incontinence Order Specific Question: Performing Provider Answer: CARTER MERCER [[id number]] Manometry Anal Scheduling Instructions: Same day as colonoscopy please. Order Specific Question: Pre-op diagnosis: Answer: fecal incontience with fecal smearing Order Specific Question: Performing Provider Answer: CARTER MERCER [[id number]] PEG 2769-JHe-PzAzu-NaCl-NaSulf 240 GM Oral Solution Reconstituted (COLYTE ) Sig: Take 4,000 mLs by mouth once for 1 dose Dispense: 4000 mL Refill: 1 The patient was discussed with Dr. Mercer who agrees with the above assessment and plan. Iris Altamirano PA 11/17/2019 9:43 AM Iris Altamirano PA-C Physician [employer] Make[employer] Artist [facility] Gastroenterology documented in this encounter Plan of Treatment Date Type Specialty Care Team Description 12/20/2019 Hospital Encounter Carter Mercer MD [address] [place] [address] [phone] 01/18/2020 Office Visit Gastroenterology Iris Altamirano PA [address] [place] [address] Name Type Priority Associated Diagnoses Order Schedule Diagnostic GI Routine Diarrhea, unspecified Ordered: 11/17/2019 colonoscopy type Excessive flatus Fecal smearing Incontinence of feces with fecal urgency Manometry Anal GI Routine Fecal smearing Ordered: 11/17/2019 Incontinence of feces with fecal urgency Community-Acquired Microbiology Routine Diarrhea, unspecified 1 Occurrences Diarrhea Panel type starting 11/17/2019 until 05/17/2020 Health Maintenance Due Date Last Done Comments MMR Vaccines (1 of 1 - Standard 1964 series) Varicella Vaccines (1 of 2 - 1966 2-dose childhood series) HIV Screening 1976 Cervical Cancer Screening 5 years 1984 Breast Cancer Screening 2 years 2013 Colon Cancer Screening 10 yrs 2013 DTaP,Tdap,and Td Vaccines (2 - Td) 11/26/2017 10/29/2017 Influenza Vaccine 07/11/2019 Pneumococcal Vaccine: 65+ Years (1 2028 of 2 - PCV13) Hepatitis C Screening (B. Completed 11/15/2014 [id number]) HIB Vaccines Aged Out No longer eligible based on patient's age to complete this topic Hepatitis A Vaccines Aged Out No longer eligible based on patient's age to complete this topic Hepatitis B Vaccines Aged Out No longer eligible based on patient's age to complete this topic IPV Vaccines Aged Out No longer eligible based on patient's age to complete this topic Pneumococcal Vaccine: Pediatrics Aged Out No longer eligible based on (0 to 5 Years) and At-Risk patient's age to complete Patients (6 to 64 Years) this topic documented as of this encounter Implants Implanted Type Area Stick Feeder Device Shelf Model / Identifier Expiration Date Serial / Lot Rosa Nileelenaalireza Sandovalelon 60 - [id number] MANISH IBRAHIM + 07/10/2017 [id number] / Implanted: Qty: 1 on 11/14/2014 by Shaq Whelan MD at [facility] / [id number] Rosa Flood 60 - [id number] MANISH IBRAHIM + 06/10/2017 [id number] / Implanted: Qty: 1 on 11/14/2014 by Shaq Whelan MD at [facility] / [id number] documented as of this encounter Results TSH (11/17/2019 10:00 AM EST) Pathologist [facility] TSH 2.100 0.270 - 4.200 u[IU]/mL [facility] Pathology Specimen Plasma Performing Organization Address [facility] Phone Number [facility] PATHOLOG[facility] [address] [place] [address] [phone] [facility] [address] [place] [phone] Pathology T4, free (11/17/2019 10:00 AM EST) Pathologist [facility] Free Thyroxine 1.22 0.93 - 1.70 ng/dL [facility] Pathology Specimen Plasma Performing Organization Address [facility] Phone Number [facility] [address] [place] [address] [facility] [address] [place] [phone] Pathology CBC and differential (11/17/2019 10:00 AM EST) Pathologist [facility] White Blood Cell 7.3 4 - 10 [place] 10*3/uL Pathology Laboratory Red Blood Cell 4.41 4.1 - 5.3 [place] 10*6/uL Pathology Laboratory Hemoglobin 13.3 11.5 - 15.5 [place] g/dL Pathology Laboratory Hematocrit 39.1 36 - 45 % [facility] Mean Cell Volume 88.8 80 - 96 fL [facility] Mean Cell Hemoglobin 30.1 27 - 33 pg [place] Mean Cell Hgb Conc 33.9 32.0 - 36.0 [place] g/dL Pathology Laboratory Red Cell Dist Width 13.6 11.5 - 14.5 % [place] Platelet Count 181 150 - 400 [place] 10*3/uL Pathology Laboratory Differential Type Automated Diff [facility] Neutrophil 65 % [facility] Lymphocyte 26 % [facility] Monocyte 8 % [facility] Eosinophil 1 % [facility] Basophil 0 % [facility] Abs Neutrophil 4.80 1.8 - 7.0 [place] 10*3/uL Pathology Laboratory Abs Lymphocyte 1.90 1.2 - 4.0 [place] 10*3/uL Pathology Laboratory Abs Monocyte 0.60 0 - 0.8 [place] 10*3/uL Pathology Laboratory Abs Eosinophil 0.10 0 - 0.5 [place] 10*3/uL Pathology Laboratory Abs Basophil 0.00 0 - 0.2 [place] 10*3/uL Pathology Laboratory Specimen EDTA Whole Blood Performing Organization Address [facility] Phone Number [facility] [address] [place] [address] [place], [address] Pathology [address] [place] [address] Laboratory 402 Hepatic function panel (11/17/2019 10:00 AM EST) Albumin 4.0 3.5 - 5.2 g/dL [facility] Pathology Bilirubin, Total 0.6 <1.2 mg/dL [facility] Pathology Bilirubin, Direct <0.2 <0.3 mg/dL [facility] Pathology Alkaline Phosphatase 91 35 - 104 U/L [facility] Pathology AST/SGO 12 <32 U/L [facility] Pathology ALT/SGP 16 <33 U/L [facility] Pathology Total Protein 6.4 6.4 - 8.3 g/dL [facility] Pathology Specimen Plasma Performing Organization Address [facility] Phone Number [facility] [address] [place] [address] [facility] [address] [place] [address] Pathology Celiac reflex panel (11/17/2019 10:00 AM EST) Deam Gliadin Pep <5.2Comment: <20.0 [facility] IgA Negative [facility] Pathology Deam Gliadin Pep <2.8Comment: <20.0 [facility] IgG Negative [facility] Pathology Tissue Transglut <1.9Comment: <20.0 [facility] IgA Negative [facility] Pathology IgA 146 70 - 400 mg/dL [facility] Pathology Specimen Serum Performing Organization Address [facility]/State/Zipcode Phone Number [facility] [address] [place] [address] [facility] [address] [place] [address] Pathology Basic metabolic panel (11/17/2019 10:00 AM EST) Bicarbonate 27 22 - 29 mmol/L [facility] Pathology Chloride 104 98 - 107 mmol/L [facility] Pathology Creatinine 0.86 0.50 - 0.90 [facility] mg/dL [facility] Pathology Glucose 88 70 - 140 mg/dL [facility] Pathology Potassium 3.8 3.4 - 5.1 mmol/L [facility] Pathology Sodium 140 136 - 145 mmol/L [facility] Pathology Blood Urea Nitrogen 14 6 - 20 mg/dL [facility] Pathology Anion Gap 9 8 - 15 mmol/L [facility] Pathology Osmolality, Conor 290 275 - 300 [facility] mosm/kg [facility] Pathology BUN/Cre Ratio 16 [facility] Pathology Calcium 9.0 8.6 - 10.0 mg/dL [facility] Pathology GFR Non 74 >60 [facility] Bermudian 2009 CDK-EPI mL/min/1.73m2 [facility] Pathology GFR 86 >60 [facility] 2009 CKD-EPI mL/min/1.73m2 [facility] Pathology Specimen Plasma Performing Organization Address City/State/Zipcode Phone Number [facility] [address] [place] [address] [facility] [address] [place] [address] Pathology documented in this encounter Visit Diagnoses Diagnosis Diarrhea, unspecified type - Primary Excessive flatus Flatulence, eructation, and gas pain Fecal smearing Incontinence of feces with fecal urgency documented in this encounter
--- OUTSIDE RECORDS SUMMARY | 2020-01-02 15:22 | XMS REPORT | Summary of Care ---
:1965 Author Organization [facility] Address [address] [place] [address] Care Team Providers Name Role Phone Blanche Rogers JAVA PORTAL DEVELOPER Primary Care Provider Reason for Visit Auth/Cert Status Reason Specialty Diagnoses / Procedures Referred By Contact Referred To Contact Diagnoses Diarrhea, unspecified type Excessive flatus Ronnie Mercer MD 1000 [facility] [address] [place] [id number] Email: [email or web address] Encounter Details Date Type Department Care Team Description 12/20/2019 Hospital Encounter GI Services Ronnie Mercer MD 750 [facility] [address] [place] [address] [address] [place] [address] [phone] Allergies Active Allergy Reactions Severity Noted Date Comments Oxycodone-Acetaminophen Itching, Swelling, Rash Medium 11/07/2013 Silver Sulfadiazine 10/09/2013 Reaction: HIVES Sulfa Antibiotics Hives 07/19/2013 Tramadol Hives 07/19/2013 documented as of this encounter (statuses as of 12/20/2019) Medications Medication Sig Dispensed Refills Start Date End Date Status duloxetine (CYMBALTA) Take 60 mg by 0 Active 60 MG capsule mouth daily. VITAMIN D, Take 5,000 Units 0 Active CHOLECALCIFEROL, PO by mouth Sucralfate 1 GM Oral TAKE 1 TABLET BY 360 tablet 3 10/05/2019 Active Tablet (CARAFATE) MOUTH FOUR TIMES DAILY. CRUSH TABLET IN A SMALL AMOUNT OF WATER AND DRINK Pantoprazole Sodium 40 TAKE 1 TABLET BY 90 tablet 3 10/05/2019 Active MG Oral Tablet Delayed MOUTH EVERY DAY. Release (PROTONIX) documented as of this encounter (statuses as of 12/20/2019) Active Problems Problem Noted Date Marginal ulcer 10/06/2019 Status post bariatric surgery 01/09/2016 Herniated nucleus pulposus, C6-7 07/19/2013 Cervical spondylosis with radiculopathy 07/19/2013 Cervical spondylosis with myelopathy 07/19/2013 documented as of this encounter (statuses as of 12/20/2019) Resolved Problems Problem Noted Date Resolved Date Malnutrition 02/08/2015 01/09/2016 Malnutrition 12/21/2014 01/09/2016 Type II or unspecified type diabetes mellitus without 08/07/2014 12/21/2014 mention of complication, not stated as uncontrolled Morbid obesity 07/10/2014 01/09/2016 Herniated nucleus pulposus, C5-6 07/19/2013 01/09/2016 Diabetes mellitus 01/09/2016 documented as of this encounter (statuses as of 12/20/2019) Social History Tobacco Use Types Packs/Day Years Used Date Never Smoker Smokeless Tobacco: Never Used Alcohol Use Drinks/Week oz/Week Comments No Sex Assigned at Date Recorded Not on file Job Start Date Occupation Industry Not on file Not on file Not on file Travel History Travel Start Travel End [facility] 12/03/2019 12/10/2019 documented as of this encounter Last Filed Vital Signs Vital Sign Reading Time Taken Comments Blood Pressure 149/77 12/20/2019 12:40 PM EDT Pulse 66 12/20/2019 12:40 PM EDT Temperature 36.5 12/20/2019 9:31 AM EDT C (97.7 F) Respiratory Rate 16 12/20/2019 12:40 PM EDT Oxygen Saturation 100% 12/20/2019 12:40 PM EDT Inhaled Oxygen Concentration - - Weight 84.4 kg (186 lb) 12/20/2019 9:31 AM EDT Height 149.9 cm (4' 11") 12/20/2019 9:31 AM EDT Body Mass Index 37.57 12/20/2019 9:31 AM EDT documented in this encounter Plan of Treatment Date Type Specialty Care Team Description 01/18/2020 Office Visit Gastroenterology Iris Altamirano, PA [address] [address] Name Type Priority Associated Diagnoses Date/Time Surgical Pathology Pathology and Routine 12/20/2019 2:19 Exam ( Only) Cytology PM EDT Name Type Priority Associated Order Schedule Diagnoses Surgical Pathology Pathology and Routine Once for 1 Exam ( Only) Cytology Occurrences starting 12/20/2019 until 12/20/2019 Surgical Pathology Pathology and Routine Once for 1 Exam ( Only) Cytology Occurrences starting 12/20/2019 until 12/20/2019 Health Maintenance Due Date Last Done Comments [...] PCV13) Hepatitis C Screening (B. Completed 11/15/2014 3913-0245) HIB Vaccines Aged Out No longer eligible [...] of this encounter Implants Implanted Type Area Evaporator Operator Molasses Device Shelf Model / Identifier Expiration Date Serial / Lot Rosa Flood 60 - [id number] ARISTIDESMANISH [employer] + 07/10/2017 [id number] / Implanted: Qty: 1 on 11/14/2014 by Shaq Whelan MD at [facility] / [id number] Rosa Sandovalelon 60 - [id number] ALEXANDRIAMANISH Lashon + 06/10/2017 [id number] / Implanted: Qty: 1 on 11/14/2014 by Shaq Whelan MD at [facility] / [id number] documented as of this encounter Procedures Procedure Name Priority Date/Time Associated Diagnosis Comments COLONOSCOPY 12/20/2019 12:00 AM EDT documented in this encounter Results Not on filedocumented in this encounter
--- OUTSIDE RECORDS SUMMARY | 2020-01-02 15:22 | XMS REPORT | Continuity of Care Document ---
:1965 Author Organization [facility] Address [address] [place], [place] [id number] Phone Care Team Providers Name Role Phone Berenice Dunham PA-C Unavailable Unavailable Allergies, Adverse Reactions, Alerts Substance Reaction Status MILNACIPRAN HCL diffuse rash and headache (moderate) Active TRAZODONE HCL Active TRAMADOL HCL Active Medications Medication Instructions Dosage Effective Dates Status Comments (start - stop) duloxetine 30 mg take 2 capsule by 60 MG - Active capsule,delayed oral route every release day sucralfate 1 gram take 1 tablet by 1 G - Active tablet oral route 4 times every day on an empty stomach 1 hour before meals and at bedtime cholecalciferol take 1 by Oral 1 - Active (vitamin D3) 5,000 route every day unit tablet Tylenol Extra Strength take 2 tablet 1000 MG - Active 500 mg Tab (1000MG) by oral route every 6 hours as needed duloxetine 30 mg take 1 capsule by 30 MG - No Longer capsule,delayed oral route every Active release day Problems Condition Effective Dates (start - Clinical [...] Fibromyalgia Primary generalized (osteo)arthritis Procedures Procedure Date ENTIRE SPINE AP/LAT XRAY SCOLIOSIS EVAL OFFICE/OUTPATIENT VISIT, EST Results Test Name Date and Time Measure Units Reference Range Abnormal Flag Status Comments No information Advance Directives Directive Yes / No Effective Date File Name No information Encounters Encounter Practice Location Reason(s) For Diagnoses Date Provider Providers Description Visit Copied on Encounter OFFICE/OUTPA Arthritis Arthritis Fibromyalgia Dorsalgia, Dec- [place] Referring TIENT VISIT, Health Health syndrome unspecifiedF CINDI Ng. Provider: MALKA Gorman (chief ibromyalgiaP [phone] complaint) [facility] generalized [place], [place], [address] [place], (osteo)arthr [place], [place], [place]ervical [place], [place], [place], disc [id number], [place], [id number], [place], [place], [address]. [place] unspecified, tel:+[phone] tel:+[phone] tel:[phone] cervicothora [phone] cic region Arthritis Arthritis Pain in [facility] Referring [facility] jointBack MD Grewal. Provider: Sherif Gorman painFibromya 0 [phone], [facility] lgiaPolyarth [facility], s, [address] [place], [place], [facility], [place], [place], [place], [id number], [place], [id number], [place], [address]. [place] tel:[phone] tel:+607 tel:[phone] Arthritis Arthritis Fibromyalgia Mc[place] Referring [facility] Primary CINDI Ng. Provider: Sherif tinoco 9 [phone], [facility] [place], [place], [address] [place], [place], [place], [place], [place], [place], [id number], [place], [id number], [place], [address]. [place] tel:+[phone] tel:+607 tel:[phone] Arthritis Arthritis Fibromyalgia Dec-0 [place] Referring Health Health Primary 6- CINDI Ng. Provider: Sherif Gorman generalized 8 [phone], [facility] (osteo[facility]arthr [facility], s, [address] [place], [place], [place], [place], [place], [place], [id number], [place], [id number], [place], [address]. [place] tel:+[phone] tel:+60 tel:[phone] Arthritis Arthritis Fibromyalgia Brandon-0 [place] Referring Health Health Primary CINDI Ng. Provider: Sherif Gorman generalized 8 [phone], [facility] (osteo)arthr [facility], s, [address] [place], [place], [place], [place], [place], [place], [id number], [place], [id number], [place], [address]. [place] tel:+[phone] tel:+607 tel:[phone] Arthritis Arthritis Fibromyalgia Dec-0 [facility] Referring Health Health Primary MD Hardy. Provider: Sherif Gorman generalized 7 [phone], [facility] (osteo)arthr [facility] itisCervical [place], s, [address] [place], disc [place], [place], [place], [place], [place], [place], unspecified, [id number], [place], [id number], [place], [address]. [place] [facility] tel:+[phone] tel:+60 tel:[phone] Arthritis Arthritis Fibromyalgia Brandon-0 [place] Referring Health Health Primary 8 CINDI Ng. Provider: Shreif Gorman generalized 7 [phone], [facility] (osteo)arthr [facility], s, [address] [place], [place], [place], [place], [place], [place], [id number], [place], [id number], [place], [address]. [place] tel:+[phone] tel:+ tel:[phone] Arthritis Arthritis Fibromyalgia Dec-0 [place] Referring Health Health Primary 1-201 PA-C Berenice. Provider: Sherif Gorman generalized 6 [phone], [facility] (osteo)arthr [facility], , [address] [place] [address], [place], [place], [place], [place], [id number], [place], [id number], [place], [address]. [place] tel:+[phone] tel:+60 tel:[phone] Arthritis Arthritis Fibromyalgia Josafat-2 [place] Referring Health Health Primary 0-201 PA-C Berenice. Provider: Sherif Gorman generalized 6 [phone], 5[facility] (osteo[facility]arthr [facility], , [address] [facility], [place], [place], [place], [place], [id number], [place], [id number], [place], [address]. [place] tel:+[phone] tel:+60 tel:[phone] Arthritis Arthritis Fibromyalgia May-1 [place] Referring Health Health Primary 2-201 PA-C Berenice. Provider: Sherif Gorman generalized 6 [phone], 5[facility]C (osteo)arthr [facility], , [address] [facility], [place], [place], [place], [place], [id number], [place], [id number], [place], [address]. [place] tel:+[phone] tel:+60 tel:[phone] Arthritis Arthritis Fibromyalgia Feb-1 [place] Referring Health Health Primary 1-201 PA-C Berenice. Provider: Sherif Gorman generalized 6 [phone], 5[facility] (osteo)arthr [facility] [place], , [address] [place] [address], [place], [place], [place], [place], [id number], [place], [id number], . [place], [address]. [place] tel:+[phone] tel:+60 tel:[phone] Arthritis Arthritis Fibromyalgia Dec-3 [place] Referring [facility] Primary 0-201 SHAILESH-Anjum Ng. Provider: Sherif [phone], 5[facility]C (osteo)arthr [facility], , [address] [place] [address], [place], [place], [place], [place], [id number], [place], [id number], . [place], [address]. [place] tel:+[phone] tel:+60 tel:[phone] Arthritis Arthritis Apr-1 [place] Referring [facility] 9-201 CINDI Ng. Provider: Sherif Gorman 3 [phone], 5794 PLLC [facility], , [address] [place] [address], [place], [place], [place], [place], [id number], [place], [id number], . [place], [address]. [place] tel:+[phone] tel:+60 tel:[phone] Arthritis Arthritis Apr-0 [place] Referring [facility] 7-201 CINDI Ng. Provider: Sherif Gorman 1 [facility], 5794 [facility]C [facility], , [address] [place] [address], [place], [place], [place], [place], [id number], [place], [id number], . [place], [address]. [place] tel:+[phone] tel:+607 tel:[phone] Family History Family Member Diagnosis Age At Onset No information Immunizations Vaccine Date Status Comments Influenza, injectable, MDCK, administered Source: Other Provider Stacy Amos 2018-2019Y Not receiving Zoster administered Source: New Immunization Record Never had a PPV23 administered Source: New Immunization Record Payers Payer name Insurance type Covered libertarian ID Authorization(s) BCBS No Referral Required [id number] Social History Type Description Quantity Date Captured Comments Alcohol Use Details No Caffeine Use Details No Tobacco Use Status Never smoked tobacco Smoking Status Never smoker Non-Smoking Tobacco : No Details Available : No Details Available 2019 Use Details Sex Female Vital Signs Date / Height Weight BMI Pulse Blood Temperature Respiratory Body Head BMI Pulse Inhaled Time: Rate Pressure Rate Surface Circumference percentile Ox Ox Area 60.00 187.00 36.5 132 in lbs 2 mm[Hg] 1:46 kg/m PM eter (2) Chief Complaint And Reason For Visit Most recent encounter only, dated '12/14/2019 13:20'. Fibromyalgia syndrome (chief complaint). Description: The pain severity is 3/10. Patient is experiencing generalized morning stiffness which varies and back pain. Patient denies having diarrhea, lossof appetite, eye symptoms, fever, rash, oral ulcers (mouth sores), pleuritic pain and shortness of breath.Patient is currently taking cymbalta with no side effects Reason For Referral Reason For Referral No information Plan Of Treatment Date Type Action Status Referral Ordered: ordered *XRAY ENTIRE SPINE AP/LAT Appointment Gisela Thao BOOKED History Of Present Illness Encounter Date Complaint History Of Present Illness Fibromyalgia syndrome The pain severity is 3/10. Patient is experiencing generalized morning stiffness which varies and back pain. Patient denies having diarrhea, loss of appetite, eye symptoms, fever, rash, oral ulcers (mouth sores), pleuritic pain and shortness of breath.Patient is currently taking cymbalta with no side effects Functional Status Date Functional Assessment No information Medications Administered Medication Instructions Dosage Effective Dates (start - stop) Status Comments No information Instructions Date Instruction Additional Information No information
--- OUTSIDE RECORDS SUMMARY | 2020-01-02 15:22 | XMS REPORT | Continuity of Care Document ---
:1965 Author Organization [facility] Address [address], [place] [id number] Phone Care Team Providers Name Role Phone Uri Rebollar MD Unavailable Unavailable Allergies, Adverse Reactions, Alerts Substance Reaction Status MILNACIPRAN HCL diffuse rash and headache (moderate) Active TRAZODONE HCL Active TRAMADOL HCL Active Medications Medication Instructions Dosage Effective Dates Status Comments (start - stop) duloxetine 30 mg take 1 capsule by 30 MG - Active capsule,delayed oral route every release day cholecalciferol take 1 by Oral 1 - Active (vitamin D3) 5,000 route every day unit tablet Tylenol Extra Strength take 2 tablet 1000 MG - Active 500 mg Tab (1000MG) by oral route every 6 hours as needed prednisone 5 mg tablet take 4 Tablet by 20 MG - No Longer oral route every Active day for 4 days then decrease by 1 tab every [address] 30MG TAKE 1 CAPSULE BY 30 MG - No Longer CAPSULES MOUTH ONCE DAILY Active Problems Condition Effective Dates (start - Clinical Status Comments stop) Pain in joint Back pain Fibromyalgia Polyarthritis Fibromyalgia Primary generalized (osteo)arthritis Fibromyalgia Primary generalized (osteo)arthritis Fibromyalgia Primary generalized (osteo)arthritis Fibromyalgia Primary generalized (osteo)arthritis Cervical disc disorder, unspecified, cervicothoracic region Fibromyalgia Primary generalized (osteo)arthritis Fibromyalgia Primary generalized (osteo)arthritis Fibromyalgia Primary generalized (osteo)arthritis Fibromyalgia Primary generalized (osteo)arthritis Fibromyalgia Primary generalized (osteo)arthritis Fibromyalgia Primary generalized (osteo)arthritis Procedures Procedure Date ROUTINE VENIPUNCTURE COMPLETE CBC W/AUTO DIFF WBC RBC SED RATE, AUTOMATED C-REACTIVE PROTEIN ASSAY OF CREATININE TRANSFERASE (AST) (SGOT) ALANINE AMINO (ALT) (SGPT) ASSAY OF CK (CPK) ANTINUCLEAR ANTIBODIES (LARS) Titer By SWT ASSAY OF BLOOD/URIC ACID RHEUMATOID FACTOR, QUANT CCP ANTIBODY OFFICE/OUTPATIENT VISIT, EST Results Test Name Date and Time Measure Units Reference Range Abnormal Flag Status Comments Panel Description: CBC Final WBC 16:37:00 7.0 10*3/uL 3.7-10.1 Final RBC 16:37:00 4.83 10*6/uL 3.50-5.50 Final HGB 16:37:00 14.4 g/dL 12.0-16.0 Final HCT 16:37:00 44.1 % 36.0-48.0 Final MCV 16:37:00 91.4 fL 80.0-100.0 Final MCH 16:37:00 29.8 pg 26.0-34.0 Final MCHC 16:37:00 32.6 g/dL 31.0-37.0 Final RDW 16:37:00 12.1 % 10.0-15.0 Final PLATELETS 16:37:00 193 10*3/uL 150-500 Final MPV 16:37:00 8.5 fL 6.0-10.0 Final JOSEFINA# 16:37:00 4.21 10*3/uL 2.10-8.00 Final LYM# 16:37:00 2.09 10*3/uL 1.00-5.00 Final MONO# 16:37:00 0.60 10*3/uL 0.10-1.00 Final EOS# 16:37:00 0.1 10*3/uL 0.0-0.5 Final BASO# 16:37:00 0.1 10*3/uL 0.0-0.2 Final JOSEFINA% 16:37:00 59.9 % 50.0-80.0 Final LYM% 16:37:00 29.7 % 25.0-50.0 Final MONO% 16:37:00 8.6 % 2.0-10.0 Final EOS% 16:37:00 1.1 % 0.0-5.0 Final BASO% 16:37:00 0.8 % 0.0-4.0 Final Panel Description: ANTI-CCP IgG/IgA Final ANTI-CCP IgG/IgA 16:37:00 6 Units <20 Final Panel Description: LARS IFA w/ Reflex Final ANAIFA 16:37:00 Negative Final Panel Description: HLAB27 Final HLAB27 TYPING 16:37:00 Negative Final Reference range: NEGATIVEPERFORMED AT [facility], [address] [place] [id number] otherwise specified, testing performed by [facility] [address] [place] [id number]

Panel Description: ESR Final ESR 16:37:00 2 mm/Hr 0-20 Final Panel Description: RF IgM Final RF IgM 16:37:00 4 Units <7 Final Panel Description: SACCHAROMYCES ABS Final SACCHAROMYCES IGA 16:37:00 9.6 Units Final Reference range : 0.0 to 24.9INTERPRETIVE INFORMATION: S. cerevisiae Antibody, IgA and IgG 20.0 Units or less ........ Negative 20.1 to 24.9 Units ......... Equivocal 25.0 Units or greater ...... PositiveSaccharomyces cerevisiae IgG antibodies are found in 60-70 percent of Crohn disease (CD) patients and 10-15 percent of ulcerative colitis (UC) patients. Saccharomyces cerevisiae IgA antibodies are found in about 35 percent of CD patients but less than 1 percent in UC patients. Detection of both Saccharomyces IgG and IgA antibodies in the same serum specimen is highly specific for CD.

SACCHAROMYCES IGG 16:37:00 12.9 Units Final Reference range: 0.0 to 24.9Performed by [facility] [place] [address] sqz.Sling.[facility] specialty hospitalBrady MD, Lab. DirectorUnless otherwise specified, testing performed by [facility] [employer] [address]

Panel Description: ALT Final ALT 16:37:00 22 U/L 30-65 L Final Panel Description: AST Final AST 16:37:00 21 U/L 15-37 Final Panel Description: CREATINE KINASE Final CREATINE KINASE 16:37:00 43 U/L 26-192 Final Panel Description: CREATININE Final CREATININE 16:37:00 0.9 mg/dL 0.6-1.2 Final eGFR 16:37:00 >60 mL/min/1.73m Final Panel Description: CRP Final CRP 16:37:00 <0.2 mg/dL 0.0-1.0 Final Panel Description: URIC ACID Final URIC ACID 16:37:00 4.0 mg/dL 2.4-8.6 Final Advance Directives Directive Yes / No Effective Date File Name No information Encounters Encounter Practice Location Reason(s) For Diagnoses Date Provider Providers Description Visit Copied on Encounter OFFICE/OUTPA Arthritis Arthritis Fibromyalgia Pain in [facility] TIENT VISIT, [facility] Health syndrome jointBack MD Grewal. Provider: [facility] (chief painFibromya 0 [facility], 5794 PLLC complaint) [facility], [address] [facility], [place], [place], [place], [place], [id number], [place], [id number], [place], [id number]. tel:[phone] tel:[phone] tel:[phone] Arthritis Arthritis Dec-3 [email or web address] 0-201 CINDI Ng. [facility] 9 5794 PLLC, 5794 PLLC [facility], [place], [place], [id number], [id number], [place]. [place] tel:[phone] tel:[phone] Arthritis Arthritis Fibromyalgia Brandon-2 [place] Referring Health Health Primary 7-201 CINDI Ng. Provider: Sherif Gorman generalized 9 [facility] [facility], 5794 PLLC (osteo)arthr [facility], , [address] [place], [place], [facility], [place], [place], [place], [id number], [place], [id number], [place], [address]. [place] tel:+[phone] tel:+[phone] tel:[phone] Arthritis Arthritis Fibromyalgia Dec-0 [place] Referring Health Health Primary 6- CINDI Ng. Provider: Sherif Gorman generalized 8 [facility], 5794 PLLC (osteo)arthr [facility], s, [address] [place], [place], [facility], [place], [place], [place], [id number], [place], [id number], [place], [address]. [place] tel:+[phone] tel:+[phone] tel:[phone] Arthritis Arthritis Fibromyalgia Brandon-0 [place] Referring Health Health Primary 7-201 CINDI Ng. Provider: Sherif Gorman generalized 8 5[facility], 5794 PLLC (osteo)arthr [facility], s, [address] [place], [place], [facility], [place], [place], [id number], [place], [id number], [place], [address]. [place] tel:[phone] tel:[phone] tel:[phone] Arthritis [facility]algia Dec[facility]0 [facility] Referring Health Health Primary 7-201 MD Hardy. Provider: Sherif Gorman generalized 7 5794 [facility], 5794 PLLC (osteo)arthr [facility] itisCervical [place], s, [address] [place], disc [place], [place], disorder, [place], [place], [place], unspecified, [id number], [place], [id number], [place], [address]. [place] [facility] tel:[phone] tel:[phone] tel:[phone] Arthritis Arthritis Fibromyalgia Brandon-0 [place] Referring Health Health Primary 8-201 PA-C Berenice. Provider: [facility] generalized 7 5[address] [facility], 5794 PLLC (osteo)arthr [facility], s, [address] [place], [place], [place], [place], [place], [place], [id number], [place], [id number], [place], [address]. [place] tel:+[phone] tel:+60 tel:[phone] Arthritis Arthritis Fibromyalgia Dec-0 [place] Referring Health Health Primary 1-201 PA-C Berenice. Provider: [facility] generalized 6 5794 [facility], 5794 PLLC (osteo)arthr [facility], s, [address] [place], [place], [place], [place], [place], [place], [id number], [place], [id number], [place], [address]. [place] tel:+[phone] tel:+60 tel:[phone] Arthritis Arthritis Fibromyalgia Josafat-2 [place] Referring Health Health Primary 0-201 PA-C Berenice. Provider: [facility] generalized 6 5794 [facility], 5794 PLLC (osteo)arthr [facility], s, [address] [place], [place], [place], [place], [place], [place], [id number], [place], [id number], [place], [address]. [place] tel:+[phone] tel:+607 tel:[phone] Arthritis Arthritis Fibromyalgia May-1 [place] Referring Health Health Primary 2-201 PA-Anjum Ng. Provider: Sherif Gorman generalized 6 5794 [facility], 5794 PLLC (osteo)arthr [facility], , [address] [facility], [place], [place], [place], [place], [id number], [place], [id number], [place], [address]. [place] tel:+[phone] tel:+60 tel:[phone] Arthritis Arthritis Fibromyalgia Feb-1 [place] Referring Health Health Primary 1-201 PA-Anjum Ng. Provider: Sherif Gorman generalized 6 5794 [facility], 5794 PLLC (osteo)arthr [facility], , [address] [place] [address], [place], [place], [place], [place], [id number], [place], [id number], [place], [address]. [place] tel:+[phone] tel:+60 tel:[phone] Arthritis Arthritis Fibromyalgia Dec-3 [place] Referring Health Health Primary 0-201 CINDI Ng. Provider: Sherif Gorman generalized 5 5794 [facility], 5794 PLLC (osteo)arthr [facility], , [address] [place] [address], [place], [place], [place], [place], [id number], [place], [id number], [place], [address]. [place] tel:+[phone] tel:+60 tel:[phone] Arthritis Arthritis Apr-1 [place] Referring Health Health 9-201 PADayanna Ng. Provider: Sherif Gorman 3 5794 [facility], 5794 PLLC [facility], , [address] [place], [place], [facility], [place], [place], [place], [id number], [place], [id number], [place], [address]. [place] tel:+[phone] tel:[phone] tel:[phone] Arthritis Arthritis Jan- [facility] 7- CINDI Ng. Provider: Sherif Gorman 1 5794 [facility], [facility], , [address] [place], [place], [facility], [place], [place], [place], [id number], [place], [id number], . [place], [id number]. tel:[phone] tel:+[phone] tel:[phone] Family History Family Member Diagnosis Age At Onset No information Immunizations Vaccine Date Status Comments Influenza, injectable, MDCK, administered Source: Other Provider Flucelvax Quad 2017-2018Y Not receiving Zoster administered Source: New Immunization Record Never had a PPV23 administered Source: New Immunization Record Payers Payer name Insurance type Covered republican ID Authorization(s) BCBS No Referral Required [id number] Social History Type Description Quantity Date Captured [...] Surface Circumference percentile Ox Ox Area 60.00 183.00 35.7 in lbs 4 mm[Hg] 4:09 kg/m PM eter (2) Chief Complaint And Reason For Visit Most recent encounter only, dated '10/31/2019 16:00'. Fibromyalgia syndrome (chief complaint). Description: Patient is experiencing generalized morning stiffness for 1 Hour. Reason For Referral Reason For Referral No information Plan Of Treatment Date Type Action Status Referral Ordered: ordered *XRAY ENTIRE SPINE AP/LAT Appointment Gisela Thao BOOKED Appointment Gisela Thao BOOKED History Of Present Illness Encounter Date Complaint History Of Present Illness Fibromyalgia syndrome Patient is experiencing generalized morning stiffness for 1 Hour. Functional Status Date Functional Assessment No information Medications Administered Medication Instructions Dosage Effective Dates (start - stop) Status Comments No information Instructions Date Instruction Additional Information No information
--- OUTSIDE RECORDS SUMMARY | 2020-01-02 15:22 | XMS REPORT | Summary of Care ---
:1965 Author Organization [facility] Address [address] [place] [address] Care Team Providers Name Role Phone Abida Solis PUBLIC HE[employer] REGISTRAR Primary Care Provider Encounter Details Date Type Department Care Team Description 11/17/2019 Hospital Encounter [facility] Pathology Diarrhea, unspecified Laboratory and [facility] at [facility] [address] [address] Allergies Active Allergy Reactions Severity Noted Date Comments Oxycodone-Acetaminophen Itching, Swelling, Rash Medium 11/07/2013 Silver Sulfadiazine 10/09/2013 Reaction: HIVES Sulfa Antibiotics Hives 07/19/2013 Tramadol Hives 07/19/2013 documented as of this encounter (statuses as of 11/18/2019) Medications Medication Sig Dispensed Refills Start Date [...] as of this encounter (statuses as of 11/18/2019) Active Problems Problem Noted Date Marginal ulcer 10/06/2019 Status post bariatric surgery 01/09/2016 Herniated nucleus pulposus, C6-7 07/19/2013 Cervical spondylosis with radiculopathy 07/19/2013 Cervical spondylosis with myelopathy 07/19/2013 documented as of this encounter (statuses as of 11/18/2019) Resolved Problems Problem Noted Date Resolved Date Malnutrition 02/08/2015 01/09/2016 Malnutrition 12/21/2014 01/09/2016 Type II or unspecified type diabetes mellitus without 08/07/2014 12/21/2014 mention of complication, not stated as uncontrolled Morbid obesity 07/10/2014 01/09/2016 Herniated nucleus pulposus, C5-6 07/19/2013 01/09/2016 Diabetes mellitus 01/09/2016 documented as of this encounter (statuses as of 11/18/2019) Social History Tobacco Use Types Packs/Day Years Used Date Never Smoker Smokeless Tobacco: Never Used Alcohol Use Drinks/Week oz/Week Comments No Sex Assigned at Date Recorded Not on file Job Start Date Occupation Industry Not on file Not on file Not on file Travel History Travel Start Travel End No recent travel history available. documented as of this encounter Last Filed Vital Signs Not on filedocumented in this encounter Plan of Treatment Date Type Specialty Care Team Description 12/20/2019 Hospital Encounter Ronnie Mercer MD [address] [place] [address] [phone] 01/18/2020 Office Visit Gastroenterology Iris Altamirano PA [address] [place] [phone] Name Type Priority Associated Diagnoses Date/Time Celiac reflex panel Lab Routine Diarrhea, unspecified type 11/17/2019 10: 00 AM EST Health Maintenance Due Date Last Done Comments [...] PCV13) Hepatitis C Screening (B. Completed 11/15/2014 [id number]) HIB Vaccines Aged Out No longer eligible [...] of this encounter Implants Implanted Type Area Wildlife Refuge Manager Device Shelf Model / Identifier Expiration Date Serial / Lot Rosa Flood 60 - [id number] MANISH IBRAHIM + 07/10/2017 [id number] / Implanted: Qty: 1 on 11/14/2014 by Shaq Whelan MD at OR [employer] / [id number] Rosa Flood 60 - [id number] [employer]ISH [employer]IM + 06/10/2017 [id number] / Implanted: Qty: 1 on 11/14/2014 by Shaq Whelan MD at OR [employer] / [id number] documented as of this encounter Procedures Procedure Name Priority Date/Time Associated Diagnosis Comments CBC AND DIFFERENTIAL Routine 11/17/2019 10:00 Diarrhea, Results for this AM EST unspecified type procedure are in the results section. TSH Routine 11/17/2019 10:00 Diarrhea, Results for this AM EST unspecified type procedure are in the results section. T4, FREE Routine 11/17/2019 10:00 Diarrhea, Results for this AM EST unspecified type procedure are in the results section. HEPATIC FUNCTION Routine 11/17/2019 10:00 Diarrhea, Results for this PANEL A AM EST unspecified type procedure are in the results section. BASIC METABOLIC PANEL Routine 11/17/2019 10:00 Diarrhea, Results for this AM EST unspecified type procedure are in the results section. documented in this encounter Results Basic metabolic panel (11/17/2019 10:00 AM EST) Bicarbonate 27 22 - 29 mmol/L [facility] Chloride 104 98 - 107 mmol/L [facility] Creatinine 0.86 0.50 - 0.90 [facility] mg/dL [facility] Glucose 88 70 - 140 mg/dL [facility] Potassium 3.8 3.4 - 5.1 mmol/L [facility] Sodium 140 136 - 145 mmol/L [facility] Blood Urea Nitrogen 14 6 - 20 mg/dL [facility] Anion Gap 9 8 - 15 mmol/L [facility] Osmolality, Conor 290 275 - 300 [facility] mosm/kg [facility] BUN/Cre Ratio 16 [facility] Calcium 9.0 8.6 - 10.0 mg/dL [facility] GFR Non 74 >60 [facility] Stateless 2009 CDK-EPI mL/min/1.73m2 [facility] GFR 86 >60 [facility] 2009 CKD-EPI mL/min/1.73m2 [facility] Pathology Specimen Plasma Performing Organization Address [facility] Phone Number [facility] [address] [place] [address] [phone] [facility] [address] [place], [place] [id number] Pathology Hepatic function panel (11/17/2019 10:00 AM EST) Albumin 4.0 3.5 - 5.2 g/dL [facility] Bilirubin, Total 0.6 <1.2 mg/dL [facility] Bilirubin, Direct <0.2 <0.3 mg/dL [facility] Alkaline Phosphatase 91 35 - 104 U/L [facility] AST/SGO 12 <32 U/L [facility] ALT/SGP 16 <33 U/L [facility] Total Protein 6.4 6.4 - 8.3 g/dL [facility] Specimen Plasma Performing Organization Address [facility] Phone Number [facility] [address] [place] [address] [phone] [facility] [address] [place], [place] [id number] Pathology CBC and differential (11/17/2019 10:00 AM EST) White Blood Cell 7.3 4 - 10 [facility] 10*3/uL Pathology Laboratory Red Blood Cell 4.41 4.1 - 5.3 [facility] 10*6/uL Pathology Laboratory Hemoglobin 13.3 11.5 - 15.5 [facility] g/dL Pathology Laboratory Hematocrit 39.1 36 - 45 % [facility] Mean Cell Volume 88.8 80 - 96 fL [facility] Mean Cell Hemoglobin 30.1 27 - 33 pg [facility] Mean Cell Hgb Conc 33.9 32.0 - 36.0 [place] g/dL Pathology Laboratory Red Cell Dist Width 13.6 11.5 - 14.5 % [facility] Platelet Count 181 150 - 400 [place] 10*3/uL Pathology Laboratory Differential Type Automated Diff [facility] Neutrophil 65 % [facility] Lymphocyte 26 % [facility] Monocyte 8 % [facility] Eosinophil 1 % [facility] Basophil 0 % [facility] Abs Neutrophil 4.80 1.8 - 7.0 [facility] 10*3/uL Pathology Laboratory Abs Lymphocyte 1.90 1.2 - 4.0 [facility] 10*3/uL Pathology Laboratory Abs Monocyte 0.60 0 - 0.8 [facility] 10*3/uL Pathology Laboratory Abs Eosinophil 0.10 0 - 0.5 [facility] 10*3/uL Pathology Laboratory Abs Basophil 0.00 0 - 0.2 [place] 10*3/uL Pathology Laboratory Specimen EDTA Whole Blood Performing Organization Address City/[facility] Phone Number [facility] [address] [place] [address] [place], [address] [facility] [address] [place] [address] Laboratory 402 T4, free (11/17/2019 10:00 AM EST) Free Thyroxine 1.22 0.93 - 1.70 ng/dL [facility] Specimen Plasma Performing Organization Address [facility] Phone Number [facility] [address] [place] [address] [phone] [facility] [address] [place] [address] Pathology TSH (11/17/2019 10:00 AM EST) TSH 2.100 0.270 - 4.200 u[IU]/mL [facility] Specimen Plasma Performing Organization Address [facility] Phone Number [facility] [address] [place] [address] [phone] [facility] [address] [place] [address] Pathology documented in this encounter Visit Diagnoses Diagnosis Diarrhea, unspecified type documented in this encounter
[2020-01-02 15:32] VITALS: BP 133/65
--- NOTE | 2020-01-02 15:38 | UC ---
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 Pt landed on her R knee and L elbow. Pt states her knee feels better, but her L elbow is painful. Pleasant 54 yo female c/o L elbow and R knee pain S/p fall off ladder approx 3 feet onto the ground on Wednesday (today is Wednesday) . Both elbow and knee are painful. Fingers occasionally dysesthetic L hand (details unclear), which is new since the fall. No focal weakness. Has been walking a little differently d/t knee pain. No neck back hip pain. No head pain / vis or aud issues. No abd pain. No gu / gi issues + hematoma L tricep area No foot / hand pain other than as above. - History of Current Complaint Chief Complaint: UCUpperExtremity Stated Complaint: S/P FALL 12/29, LEFT ELBOW/RIGHT KNEE INJURY Time Seen by Provider: 01/02/20 15:33 Hx Obtained From: Patient Hx Last Menstrual Period: none Pain Intensity: 0 - Allergy/Home Medications Allergies/Adverse Reactions: Allergies Allergy/AdvReac Type Severity Reaction Status Date / Time silver sulfadiazine Allergy Blisters, Verified 01/02/20 15:26 [From Silvadene] Swollen Lips tramadol [From Ultram] Allergy Blisters, Verified 01/02/20 15:26 Swollen Lips Home Medications: Home Medications DULoxetine DR CAP* [Cymbalta CAP*] 60 mg PO DAILY 06/22/18 [History Confirmed ] Albuterol HFA INHALER* [Ventolin HFA Inhaler*] 2 puff INH Q4H PRN 10/13/18 [ History Confirmed 01/02/20] PMH/Surg Hx/FS Hx/Imm Hx Previously Healthy: Yes - Surgical History Surgical History: Yes Surgery Procedure, Year, and Place: Gastric Bypass, 2014, [facility];. Lap Band, 2012, [facility]; C6C7 2012, [facility]; Cholecystectomy, 2002, [place];. Bilateral Tarsal Tunnel and Plantar Fasciitis; Hystectomy, 1997, [place];. C-Sections, 1985 1982, [place]; Appendectomy, 1976, [place] - Family History Known Family History: Positive: None - Social History Alcohol Use: None Substance Use Type: None Smoking Status (MU): Never Smoked Tobacco Review of Systems All Other Systems Reviewed And Are Negative: Yes Constitutional: Positive: Negative Skin: Positive: Negative Eyes: Positive: Negative ENT: Positive: Negative Respiratory: Positive: Negative Cardiovascular: Positive: Negative Gastrointestinal: Positive: Negative Genitourinary: Positive: Negative Motor: Positive: Other - see hpi Neurovascular: Positive: Other - see hpi Musculoskeletal: Positive: Other: - see hpi Neurological/Mental Status: Positive: Other - see hpi Is Patient Immunocompromised?: No Physical Exam Triage Information Reviewed: Yes Appearance: Well-Nourished Vital Signs: Initial Vital Signs Temp 97.7 F 01/02/20 15:27 Pulse 69 01/02/20 15:27 Resp 18 01/02/20 15:27 BP 133/65 01/02/20 15:27 Pulse Ox 100 01/02/20 15:27 Vital Signs Reviewed: Yes Eye Exam: Normal ENT Exam: Normal Neck exam: Normal Neck: Positive: Supple, Nontender Respiratory Exam: Normal - no tachypnea no dyspnea rr normal Cardiovascular Exam: Normal - hr normal nondiaphoretic Abdominal Exam: Normal Abdomen Description: Positive: Nontender Musculoskeletal Exam: Other - Tender post medial elbow able to move in all directions distal pulses good + distal LUE sensation + LT present. good cap refill. R knee+ swelling. Tender R ant lat knee just lateral to the patella. Mild crepitus. post knee + tender. Distal nvi Neurological Exam: Other - see above o/w grossly nonfocal Psychological Exam: Normal - nad Skin Exam: Normal - no visible or reported rash + eccymosis approx 2 cm in the tricep area Course/Dx - Course Course Of Treatment: Naproxen e-scribed. However, subsequently noted that + hx gastric bypass 2015. I called pt's pharmacy, and cancelled the order. D/w pt, who expressed understanding. L elbow xray - reviewed results with pt. No acute fx noted R knee xray - reviewed results with pt. No acute fx noted. Declines work note. reports that she can sit down at work, and use mostly her R hand. COREY or neoprene wrap to knee. L elbow sling. See AVS. Questions as posed answered to the best of my ability. - Diagnoses Provider Diagnosis: Elbow contusion, Knee injury, Arm bruise Discharge ED - Sign-Out/Discharge Documenting (check all that apply): Patient Departure All imaging exams completed and their final reports reviewed: Yes - Discharge Plan Condition: Stable Disposition: PSYCHIATRIC FACILITY-OTHER Patient Education Materials: Elbow Sprain (ED), Knee Pain (ED), Ecchymosis (ED) Referrals: Forrest Carrillo MD [Medical Doctor] - Abida Solis [Primary Care Provider] - Additional Instructions: Knee pain - due to trauma after fall. You have some fluid under the knee cap, likely trauma related. Corey or knee wrap (over the counter) as needed for pain, especially during the day. [ Consider walker. Minimize weight bearing until you are feeling better. Elbow pain - due to trauma. Likely sprain with a bruise. There is a nerve that likely was bruised, resulting in finger tingling / pain. Sling for comfort during the day. Careful not to cause too much pressure on the injured area itself. Please follow up with orthopedics, if possible in the next couple weeks. Please seek medical attention for worse or new problems. - Billing Disposition and Condition Condition: STABLE Disposition: Psychiatric Facility Other
== END 2020-01-02 17:19 ==
LOC: UCCORT 15:11
DX: S50.02XA Contusion of left elbow, initial encounter (principal); S89.91XA Unspecified injury of right lower leg, initial encounter; W11.XXXA Fall on and from ladder, initial encounter; Y92.9 Unspecified place or not applicable; Z88.5 Allergy status to narcotic agent; Z88.2 Allergy status to sulfonamides
CPT/HCPCS: 99212; G0463